=== PATIENT | female | born 1995 | race American Indian/Alaskan Native ===

== ENCOUNTER 2018-12-20 22:43 | Emergency (ER) | payer BC ==
--- NOTE | 2018-12-20 22:46 | Emergency Department Report ---
Blank Doc - Documentation Documentation: 23-year-old female that presents with epigastric abdominal pain with n/v. This initial assessment/diagnostic orders/clinical plan/treatment(s) is/are subject to change based on patient's health status, clinical progression and re- assessment by fellow clinical providers in the ED. Further treatment and workup at subsequent clinical providers discretion. Patient/guardians urged not to elope from the ED as their condition may be serious if not clinically assessed and managed. Initial orders include: 1- Patient sent to [facility] for further evaluation and treatment 2- labs 3- UA
[2018-12-20 23:16] LABS: Basophils % (Auto) 0.4 % (0.0-1.8); Eosinophils % (Auto) 0.3 % (0.0-4.3); Hemoglobin 14.4 gm/dl (10.1-14.3); Mean Corpuscular HGB Conc 33 % (30-34); Mean Corpuscular Volume 91 fl (79-97); Monocytes # (Auto) 0.4 K/mm3 (0.0-0.8); Monocytes % (Auto) 4.5 % (0.0-7.3); Platelet Count 296 K/mm3 (140-440); Red Blood Count 4.81 M/mm3 (3.65-5.03); Red Cell Distribution Width 12.4 % (13.2-15.2)
[2018-12-20 23:56] LABS: Alanine Aminotransferase 11 units/L (7-56); Albumin 4.7 g/dL (3.9-5); BUN/Creatinine Ratio 11; Blood Urea Nitrogen 8 mg/dL (7-17); Hemolysis Index 3
[2018-12-21 00:15] LABS: Amphetamine Screen,Urine PRESUMPTIVE NEGATIVE; Benzodiazepines Screen,Urine PRESUMPTIVE NEGATIVE; Cocaine Screen,Urine PRESUMPTIVE NEGATIVE; Methadone Screen,Urine PRESUMPTIVE NEGATIVE; Opiate Screen,Urine PRESUMPTIVE NEGATIVE
[2018-12-21] MEDS ORDERED: ONDANSETRON 4 MG ODT TAB PO ONE (00:19)
[2018-12-21 00:23] LABS: Bacteria,Urine 1+ /HPF (Negative); Bilirubin,Urine NEG (Negative); Blood,Urine NEG (Negative); Color,Urine Amber (Yellow); Mucus,Urine 3+ /HPF; Urobilinogen,Urine < 2.0 mg/dL (<2.0)
[2018-12-21 00:43] LABS: Cannabinoid Screen,Urine PRESUMPTIVE POSITIVE
[2018-12-21] MEDS ORDERED: SUCRALFATE 1 GM/10 ML ORAL LIQD PO ONE (01:51)
[2018-12-21] MEDS ORDERED: FAMOTIDINE 20 MG TAB PO ONE (01:51)
--- NOTE | 2018-12-21 01:52 | Emergency Department Report ---
ED General Adult HPI - General Chief complaint: Abdominal Pain Stated complaint: CHEST PAIN/STOMACH Time Seen by Provider: 12/20/18 22:45 Source: patient, RN notes reviewed Mode of arrival: Ambulatory Limitations: No Limitations - History of Present Illness Initial comments: This is a 23-year-old female. This patient is not known to this provider previ ously. 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 Has a distant history of cholecystectomy, and reports history of colonoscopy, to use a cold, which showed a polyp. The patient also endorses a history of anxiety. She presents to the ER with a complaint of intermittent abdominal cramping, epigastric burning, nausea, vomiting and diarrhea. She does not have chest pain. She denies DVT and pulmonary embolus risk factors. Symptoms are intermittent. They do not have exacerbating or relieving factors that she is aware of, with the exception of feeling anxious. At this time, she is not having abdominal pain. She reports a few episodes of nonbloody, nonbilious olive sis. She reports a few episodes of nonbloody diarrhea. At one time she was having epigastric burning pain that moved up to her throat. This is now resolved. She is currently eating ice chips. She endorses that she feels improved. Apparently, is a chronic cannabis consumer. -: Gradual, week(s), month(s) Location: abdomen Radiation: other Consistency: intermittent, now resolved Improves with: other Worsens with: other - Related Data Previous Rx's Medication Instructions Recorded Last Taken Type Acetaminophen [Non-Aspirin Extra 500 mg PO Q6HR PRN #30 tablet 12/21/18 Unknown Rx Strength] Famotidine [Pepcid] 20 mg PO BID #60 tablet 12/21/18 Unknown Rx Metoclopramide [Reglan] 10 mg PO QID PRN #30 tablet 12/21/18 Unknown Rx Promethazine [Phenergan] 25 mg PA Q6HR PRN #15 supp.rect 12/21/18 Unknown Rx Allergies Allergy/AdvReac Type Severity Reaction Status Date / Time No Known Allergies Allergy Verified 12/20/18 22:46 ED Review of Systems ROS: Stated complaint: CHEST PAIN/STOMACH Other details as noted in HPI Constitutional: denies: fever Eyes: denies: eye discharge ENT: denies: congestion Cardiovascular: denies: syncope Gastrointestinal: abdominal pain, nausea, vomiting, diarrhea. denies: constipation, hematemesis, melena, hematochezia Genitourinary: denies: dysuria Musculoskeletal: denies: back pain Skin: denies: lesions Neurological: weakness Psychiatric: anxiety ED Past Medical Hx - Past Medical History Hx GERD: Yes Hx Headaches / Migraines: Yes Hx Psychiatric Treatment: Yes (anxiety) Additional medical history: abd polyps, colitis - Surgical History Hx Cholecystectomy: Yes - Social History Smoking Status: Never Smoker Substance Use Type: None - Medications Home Medications: Home Medications Medication Instructions Recorded Confirmed Last Taken Type Acetaminophen [Non-Aspirin Extra 500 mg PO Q6HR PRN #30 tablet 12/21/18 Unknown Rx Strength] Famotidine [Pepcid] 20 mg PO BID #60 tablet 12/21/18 Unknown Rx Metoclopramide [Reglan] 10 mg PO QID PRN #30 tablet 12/21/18 Unknown Rx Promethazine [Phenergan] 25 mg PA Q6HR PRN #15 supp.rect 12/21/18 Unknown Rx ED Physical Exam - General Limitations: No Limitations General appearance: alert, in no apparent distress - Head Head exam: Present: atraumatic, normocephalic - Eye Eye exam: Present: normal appearance, EOMI. Absent: nystagmus - ENT ENT exam: Present: normal exam, normal orophraynx, mucous membranes moist, normal external ear exam - Neck Neck exam: Present: normal inspection, full ROM. Absent: tenderness, meningismus - Respiratory Respiratory exam: Present: normal lung sounds bilaterally. Absent: respiratory distress - Cardiovascular Cardiovascular Exam: Present: regular rate, normal rhythm, normal heart sounds. Absent: bradycardia, tachycardia, irregular rhythm, systolic murmur, diastolic murmur, rubs, gallop - GI/Abdominal GI/Abdominal exam: Present: soft, normal bowel sounds. Absent: distended, tenderness, guarding, rebound, rigid, pulsatile mass - Extremities Exam Extremities exam: Present: normal inspection, full ROM, other (2+ pulses noted in the bilateral upper, lower extremities. There is no long bone tenderness. Musculoskeletal compartments are soft. The pelvis is stable.). Absent: pedal edema, calf tenderness - Back Exam Back exam: Present: normal inspection, full ROM. Absent: tenderness, CVA tenderness (R), CVA tenderness (L), paraspinal tenderness, vertebral tenderness - Neurological Exam Neurological exam: Present: alert, oriented X3, other (there is no facial droop. The tongue is midline. Extraocular movements are intact bilaterally. Patient speaking in full complete sentences. Shoulder shrug is intact bilaterally. Hearing is grossly intact bilaterally. Visual acuity intact to finger counting and color perception at a close distance. 5/5 strength 4 extremities. Sensation intact to light touch in 4 extremities.) - Psychiatric Psychiatric exam: Present: anxious - Skin Skin exam: Present: warm, dry, intact, normal color. Absent: rash ED Course Vital Signs 12/20/18 22:51 Temperature 98.8 F Pulse Rate 89 Respiratory 20 Rate Blood Pressure 119/72 O2 Sat by Pulse 99 Oximetry - Reevaluation(s) Reevaluation #1: 12/21/18 01:59 Differential diagnosis, including not limited to: GERD, gastritis, hiatal hernia, cannabinoid hyperemesis syndrome, irritable bowel syndrome Assessment and plan: 23-year-old female with resolved abdominal pain, nausea, vomiting and diarrhea. The patient is afebrile with reassuring vital signs. She is not tachycardic, tachypneic, hypoxic. She has no DVT or pulmonary embolism risk factors and she is low risk by well's criteria, and she is perc negative Abdomen soft and benign during the entire history and physical examination. In addition, as I perform a history and physical, she is eating ice chips without difficulty. Laboratory studies to suggest mild dehydration, however, patient has past oral challenge. She is clinically sober at this time. She is counseled to avoid NSAIDs, cannabis, heavy and spicy foods. We discussed diet and lifestyle modifications. Physical exam unremarkable, lung sounds unremarkable, do not see a reason to perform x-ray at this time. EKG is age-appropriate, patient does not appear to have an emergent medical condition at this time. ED Medical Decision Making - Lab Data Result diagrams: 12/20/18 22:55 12/20/18 22:55 Vital Signs 12/20/18 22:51 Temperature 98.8 F Pulse Rate 89 Respiratory 20 Rate Blood Pressure 119/72 O2 Sat by Pulse 99 Oximetry Lab Results 12/20/18 12/20/18 12/20/18 Range/Units 22:55 22:55 22:55 WBC 8.4 (4.5-11.0) K/mm3 RBC 4.81 (3.65-5.03) M/mm3 Hgb 14.4 H (10.1-14.3) gm/dl Hct 44.0 H (30.3-42.9) % MCV 91 (79-97) fl MCH 30 (28-32) pg MCHC 33 (30-34) % RDW 12.4 L (13.2-15.2) % Plt Count 296 (140-440) K/mm3 Lymph % (Auto) 24.0 (13.4-35.0) % [place] % (Auto) 4.5 (0.0-7.3) % Eos % (Auto) 0.3 (0.0-4.3) % Baso % (Auto) 0.4 (0.0-1.8) % Lymph # 2.0 (1.2-5.4) K/mm3 [place] # 0.4 (0.0-0.8) K/mm3 Eos # 0.0 (0.0-0.4) K/mm3 Baso # 0.0 (0.0-0.1) K/mm3 Seg Neutrophils % 70.8 H (40.0-70.0) % Seg Neutrophils # 6.0 (1.8-7.7) K/mm3 Sodium 140 (137-145) mmol/L Potassium 3.6 (3.6-5.0) mmol/L Chloride 105.3 (98-107) mmol/L Carbon Dioxide 16 L (22-30) mmol/L Anion Gap 22 mmol/L BUN 8 (7-17) mg/dL Creatinine 0.7 (0.7-1.2) mg/dL Estimated GFR > 60 ml/min BUN/Creatinine Ratio 11 % Glucose 91 (65-100) mg/dL Calcium 10.0 (8.4-10.2) mg/dL Total Bilirubin 0.60 (0.1-1.2) mg/dL AST 21 (5-40) units/L ALT 11 (7-56) units/L Alkaline Phosphatase 53 (35-129) units/L Total Protein 8.0 (6.3-8.2) g/dL Albumin 4.7 (3.9-5) g/dL Albumin/Globulin Ratio 1.4 % Lipase 36 (13-60) units/L HCG, Qual Negative (Negative) Urine Color (Yellow) Urine Turbidity (Clear) Urine pH (5.0-7.0) Ur Specific Randall (1.003-1.030) Urine Protein (Negative) mg/dL Urine Glucose (UA) (Negative) mg/dL Urine Ketones (Negative) mg/dL Urine Blood (Negative) Urine Nitrite (Negative) Urine Bilirubin (Negative) Urine Urobilinogen (<2.0) mg/dL Ur Leukocyte Esterase (Negative) Urine WBC (Auto) (0.0-6.0) /HPF Urine RBC (Auto) (0.0-6.0) /HPF U Epithel Cells (Auto) (0-13.0) /HPF Urine Bacteria (Auto) (Negative) /HPF Urine Mucus /HPF Urine Opiates Screen Urine Methadone Screen Ur Barbiturates Screen Ur Phencyclidine Scrn Ur Amphetamines Screen U Benzodiazepines Scrn Urine Cocaine Screen U Marijuana (THC) Screen Drugs of Abuse Note 12/20/18 12/20/18 Range/Units 23:26 23:26 WBC (4.5-11.0) K/mm3 RBC (3.65-5.03) M/mm3 Hgb (10.1-14.3) gm/dl Hct (30.3-42.9) % MCV (79-97) fl MCH (28-32) pg MCHC (30-34) % RDW (13.2-15.2) % Plt Count (140-440) K/mm3 Lymph % (Auto) (13.4-35.0) % [place] % (Auto) (0.0-7.3) % Eos % (Auto) (0.0-4.3) % Baso % (Auto) (0.0-1.8) % Lymph # (1.2-5.4) K/mm3 [place] # (0.0-0.8) K/mm3 Eos # (0.0-0.4) K/mm3 Baso # (0.0-0.1) K/mm3 Seg Neutrophils % (40.0-70.0) % Seg Neutrophils # (1.8-7.7) K/mm3 Sodium (137-145) mmol/L Potassium (3.6-5.0) mmol/L Chloride (98-107) mmol/L Carbon Dioxide (22-30) mmol/L Anion Gap mmol/L BUN (7-17) mg/dL Creatinine (0.7-1.2) mg/dL Estimated GFR ml/min BUN/Creatinine Ratio % Glucose (65-100) mg/dL Calcium (8.4-10.2) mg/dL Total Bilirubin (0.1-1.2) mg/dL AST (5-40) units/L ALT (7-56) units/L Alkaline Phosphatase (35-129) units/L Total Protein (6.3-8.2) g/dL Albumin (3.9-5) g/dL Albumin/Globulin Ratio % Lipase (13-60) units/L HCG, Qual (Negative) Urine Color Shirley (Yellow) Urine Turbidity Cloudy (Clear) Urine pH 8.0 H (5.0-7.0) Ur Specific Randall 1.029 (1.003-1.030) Urine Protein 100 mg/dl (Negative) mg/dL Urine Glucose (UA) Neg (Negative) mg/dL Urine Ketones 80 (Negative) mg/dL Urine Blood Neg (Negative) Urine Nitrite Neg (Negative) Urine Bilirubin Neg (Negative) Urine Urobilinogen < 2.0 (<2.0) mg/dL Ur Leukocyte Esterase Neg (Negative) Urine WBC (Auto) 2.0 (0.0-6.0) /HPF Urine RBC (Auto) 1.0 (0.0-6.0) /HPF U Epithel Cells (Auto) 27.0 H (0-13.0) /HPF Urine Bacteria (Auto) 1+ (Negative) /HPF Urine Mucus 3+ /HPF Urine Opiates Screen Presumptive negative Urine Methadone Screen Presumptive negative Ur Barbiturates Screen Presumptive negative Ur Phencyclidine Scrn Presumptive negative Ur Amphetamines Screen Presumptive negative U Benzodiazepines Scrn Presumptive negative Urine Cocaine Screen Presumptive negative U Marijuana (THC) Screen Presumptive positive Drugs of Abuse Note Disclamer - EKG Data -: EKG Interpreted by De EKG shows normal: sinus rhythm Rate: normal - EKG Data When compared to previous EKG there are: previous EKG unavailable 12/21/18 02:01 The EKG shows a sinus rhythm, 70 bpm, high left ventricular voltage, motion artifact, the QT intervals 411 ms, the QTC is 442 ms, the EKG is not consistent with ST elevation myocardial infarction. Critical care attestation.: If time is entered above; I have spent that time in minutes in the direct care of this critically ill patient, excluding procedure time. ED Disposition Clinical Impression: History of nausea and vomiting, History of diarrhea Disposition: DC-01 TO HOME OR SELFCARE Is pt being admited?: No Does the pt Need Aspirin: No Condition: Stable Instructions: Irritable Bowel Syndrome (ED) Additional Instructions: Avoid consumption of Motrin, ibuprofen, Naprosyn, Aleve, alcohol, heavy and spicy foods. Avoid consumption and exposure to marijuana, as this may be exacer bating and worsening patient's symptoms. Take the pain medication, nausea medication as needed and directed. Advance diet as tolerated, push fluids, and consumed gentle solids as we discussed, such as bread, rice, apples, toast, Pedialyte. Follow-up with the primary care doctor or GI specialist within the next 3-4 weeks. Return to emergency room right away with projectile vomiting, change in mental status, confusion, inability to tolerate liquid feeds, new, worsened or different symptoms not present on the initial emergency room evaluation. Referrals: [facility] [Provider Group] - as needed [facility] [Provider Group] - as needed
[2018-12-21 02:18] VITALS: BP 107/69
== END 2018-12-21 02:10 | disposition home or self-care (01) ==
LOC: ED 22:43
DX: R11.2 Nausea with vomiting, unspecified (principal); R19.7 Diarrhea, unspecified; R10.13 Epigastric pain; K21.9 Gastro-esophageal reflux disease without esophagitis; F41.9 Anxiety disorder, unspecified; G43.909 Migraine, unspecified, not intractable, without status migrainosus; Z90.49 Acquired absence of other specified parts of digestive tract; Z79.899 Other long term (current) drug therapy
CPT/HCPCS: 36415; 80053; 80307; 81001; 83690; 84703; 85025; 93005; 93010; 99283; Q0162